=== PATIENT | female | born 1990 | race Caucasian/White ===

== ENCOUNTER 2018-03-20 18:54 | Inpatient (IN) | payer OTHER ==
[~2018-03-20] VITALS: Ht 154.9 cm; Wt 80.3 kg
[2018-03-20 19:08] VITALS: BP 131/73
[2018-03-20] MEDS ORDERED: OXYTOCIN 30 UNITS/LACT RINGERS 500 ML IV ONE (19:16)
[2018-03-20] MEDS ORDERED: RINGERS SOLUTION,LACTATED 1,000 ML IV PRN (19:16)
[2018-03-20] MEDS ORDERED: RINGERS SOLUTION,LACTATED 1,000 ML IV SCH (19:16)
[2018-03-20] MEDS ORDERED: FentaNYL CITRATE-PF 100 MCG/2 ML VIAL IVP PRN (19:30)
[2018-03-20] MEDS ORDERED: LIDOCAINE HCL/PF 1% 30 ML VIAL INJ PRN (19:30)
[2018-03-20] MEDS ORDERED: METOCLOPRAMIDE HCL 5 MG/ML 2 ML VIAL IVP PRN (19:30)
[2018-03-20] MEDS ORDERED: CITRIC ACID/SODIUM CITRATE 30 ML SOLUTION UDCUP PO PRN (19:30)
[2018-03-20] MEDS ORDERED: METHYLERGONOVINE MALEATE 0.2 MG/ML VIAL IM PRN (19:30)
[2018-03-20] MEDS ORDERED: OXYGEN THERAPY IH SCH (20:00)
[2018-03-20] MEDS ORDERED: prenatal PO (20:01)
[2018-03-20 21:03] LABS: BASOPHILS % (AUTO) 0.2 % (0.0-2.0); EOSINOPHILS % (AUTO) 0.1 % (1.0-6.0); HEMATOCRIT 38.9 % (36-46); HEMOGLOBIN 13.2 g/dL (12.0-16.0); LYMPHOCYTES # (AUTO) 2.5 K/uL (1.0-4.8); LYMPHOCYTES % (AUTO) 15.1 % (22.0-44.0); MEAN CORPUSCULAR HEMOGLOBIN 29.7 pg (26.0-34.0); MEAN CORPUSCULAR VOLUME 87 fL (80-100); MONOCYTES # (AUTO) 0.8 K/uL (0.1-1.0); MONOCYTES % (AUTO) 4.8 % (2.0-9.0); NEUTROPHILS % (AUTO) 79.8 % (40.0-70.0); PLATELET COUNT (AUTO) 324 K/uL (150-450); RED BLOOD CELL COUNT(AUTO) 4.46 MIL/uL (4.00-5.20); RED CELL DISTRIBUTION WIDTH 13.5 % (11.5-14.5)
[2018-03-20] MEDS ORDERED: GLYCERIN/WITCH HAZEL LEAF 40 PADS JAR TP PRN (22:00)
[2018-03-20] MEDS ORDERED: LANOLIN 7 GM OINTMENT TP PRN (22:00)
[2018-03-20] MEDS ORDERED: BENZOCAINE 20%/MENTHOL 56 GM SPRAY CANISTER TP PRN (22:00)
[2018-03-20] MEDS ORDERED: ACETAMINOPHEN/CODEINE 300-30 MG TABLET PO PRN ×2 (22:00)
[2018-03-20] MEDS: IBUPROFEN 800 MG TABLET PO SCH (22:05)
[2018-03-21] MEDS: MAGNESIUM HYDROXIDE SUSPENSION 30 ML UDCUP PO SCH ×2 (10:19→21:00)
[2018-03-21] MEDS: IBUPROFEN 800 MG TABLET PO SCH ×2 (10:19→18:26)
[2018-03-21] MEDS ORDERED: IBUP-2071 PO (16:26)
[2018-03-21] MEDS ORDERED: PREN1TAB89 PO (16:28)
[2018-03-22] MEDS: IBUPROFEN 800 MG TABLET PO SCH ×2 (00:04→06:06)
[2018-03-22] MEDS ORDERED: IBUP-2071 PO (08:30)
== END 2018-03-22 11:25 | disposition home or self-care (01) | DRG 775 ==
LOC: OBSVTOIN 18:54 → 4S 18:54
PROVIDERS: ADMIT Obstetrics & Gynecology; ATTEND Obstetrics & Gynecology
PROC: 10E0XZZ Delivery of Products of Conception, External Approach (ICD-10-PCS; principal; 2018-03-20)
PROC: 0W8NXZZ Division of Female Perineum, External Approach (ICD-10-PCS; 2018-03-20)
DX: O75.89 Other specified complications of labor and delivery (principal); Z37.0 Single live birth; Z3A.37 37 weeks gestation of pregnancy
CPT/HCPCS: 86850; 86900; 86901; J2590; J3490; J7120